=== PATIENT | female | born 1975 | race Caucasian/White ===

== ENCOUNTER 2021-08-10 06:39 | Emergency (ER) | payer OTHER ==
[2021-08-10 07:35] LABS: BASOPHIL 0.8 % (0-2); EOSINOPHIL 1.7 % (0-5); HCT 31.9 % (37.0-47.0); HGB 9.5 g/dl (12.5-16.0); LYMPHOCYTE 30.8 % (15-48); MCH 21.4 pg (25.0-31.0); MCHC 29.8 g/dL (32.0-36.0); MCV 71.8 fL (78.0-100.0); MONOCYTE 6.9 % (0-12); MPV 8.8 fL (6.0-9.5); NEUTROPHIL 59.5 % (41-80); NRBC 0; PLT 421 K/uL (150-400); RBC 4.44 M/uL (4.20-5.40)
[2021-08-10 08:04] LABS: ALBUMIN 3.8 g/dL (3.4-5.0); BILIRUBIN - TOTAL 0.2 mg/dL (0.2-1.0); BUN/CREAT RATIO (CALC) 12.5 RATIO; CREATININE 0.8 mg/dL (0.51-0.95); GLOBULIN (CALCULATION) 3.3 g/dL; POTASSIUM 3.9 mmol/L (3.5-5.1); TOTAL PROTEIN 7.1 g/dL (6.4-8.2)
[2021-08-10] MEDS ORDERED: MEDROL 4MG DOSEP4 MG PO (09:37)
== END 2021-08-10 09:47 | disposition hospice, home (50) ==
LOC: FER 06:39
PROVIDERS: Internal Medicine
DX: T78.40XA Allergy, unspecified, initial encounter (principal); J45.909 Unspecified asthma, uncomplicated; Z88.0 Allergy status to penicillin; Z88.8 Allergy status to other drugs, medicaments and biological substances; Z91.013 Allergy to seafood; Z91.040 Latex allergy status; Z28.310 Unvaccinated for COVID-19
CPT/HCPCS: 36415; 71045; 80053; 84145; 85025; J1200; J2930